=== PATIENT | male | born 1945 | race Caucasian/White ===

== ENCOUNTER → 2021-04-17 | Day surgery (SDC) | payer OTHER ==
[~2021-04-17] MED LIST: CARDIZEM CD180 MG PO; COZAAR100 MG PO; PRAVASTATIN SOD20 MG PO
== END | disposition home or self-care (01) ==
LOC: OR 06:20
DX: K29.51 Unspecified chronic gastritis with bleeding (principal); K57.31 Diverticulosis of large intestine without perforation or abscess with bleeding; K21.01 Gastro-esophageal reflux disease with esophagitis, with bleeding; K31.7 Polyp of stomach and duodenum; K66.0 Peritoneal adhesions (postprocedural) (postinfection); I10 Essential (primary) hypertension; E78.00 Pure hypercholesterolemia, unspecified; E66.3 Overweight; Z68.29 Body mass index [BMI] 29.0-29.9, adult; Z79.899 Other long term (current) drug therapy; Z20.822 Contact with and (suspected) exposure to COVID-19
CPT/HCPCS: J2704; J7040